=== PATIENT | female | born 1985 | race Caucasian/White ===

== ENCOUNTER 2019-02-03 17:52 | Emergency (ER) | payer OTHER ==
[~2019-02-03] VITALS: Ht 170.2 cm; Wt 59.0 kg
[~2019-02-03 17:52] MED LIST: ACEASPCAF PO; ACET325; ACET500 PO; ALBIPROI INH; ALBU90OI INH; AMOX500 PO; ASCO1ER; AZIT250 PO; AZIT500 PO; Amoxicillin875 MG PO; BCP; CODGUAEL PO; CYCL10 PO; FLUC150A PO; GUAI600T33 PO; HYDACE25S PR; HYDACE5 PO; HYDACE5325 PO; HYDGUAL120 PO; IBUP200; IBUP200 PO; IBUP400 PO; IBUP600 PO; Loperamide2 MG PO; MECL25 PO; MULVITMINE; NAPR500 PO; NAPR500EC PO; NAPR550 PO; NEOPOLHCSU RIGHTEAR; Norco 5-325 Ta1 EACH PO; ONDA4 PO; OXYACE5T; OXYACE5T PO; PAMPRIN; PENVK500 PO; PRED20 PO; PROM25 PO; PROM25S PR; Prilosec Otc20 MG; Pseudoephedrine30 MG PO; RANI150 PO; RXANTBENOT AU; RXCLIN PO; RXCODGUASY PO; RXHYD5325 PO; RXHYDACE PO; RXNAPNA550 PO; RXNEOPOLHC AD; RXTRAM50 PO; SULF10OPO OP; SULTRIDS PO; SUMA25 PO; TRAM50 PO; TUMS; Verotin-Gr Cap1 EACH PO; YASMINE BCP; Zithromax250 MG PO; Zofran Odt8 MG SL
[2019-02-03] MEDS ORDERED: Tamiflu75 MG PO (18:51)
== END 2019-02-03 18:54 | disposition home or self-care (01) ==
LOC: ER 17:52
DX: J11.1 Influenza due to unidentified influenza virus with other respiratory manifestations (principal); F17.200 Nicotine dependence, unspecified, uncomplicated
CPT/HCPCS: 99283

== ENCOUNTER 2019-05-07 19:32 | Emergency (ER) | payer OTHER ==
[~2019-05-07] VITALS: Ht 170.2 cm; Wt 56.7 kg
[~2019-05-07 19:32] MED LIST changes: +Tamiflu75 MG PO
== END 2019-05-07 20:29 | disposition home or self-care (01) ==
LOC: ER 19:32
DX: S61.214A Laceration without foreign body of right ring finger without damage to nail, initial encounter (principal); W26.8XXA Contact with other sharp object(s), not elsewhere classified, initial encounter; F17.200 Nicotine dependence, unspecified, uncomplicated
CPT/HCPCS: 12001; 90471; 90714; 99283-25

== ENCOUNTER 2020-06-03 13:56 | Emergency (ER) | payer OTHER ==
[~2020-06-03] VITALS: Ht 170.2 cm; Wt 49.9 kg
[2020-06-03] MEDS ORDERED: LEXAPRO5 MG (14:38)
[2020-06-03] MEDS ORDERED: Miralax17 GM PO (15:52)
[2020-06-03] MEDS ORDERED: RECTICARE30 GM TOP (15:52)
[2020-06-03] MEDS ORDERED: HYDR25SUP PR (15:52)
[2020-06-17] MEDS ORDERED: Pyridium100 MG PO (17:31)
== END 2020-06-03 16:20 | disposition home or self-care (01) ==
LOC: ER 13:56
DX: Z48.00 Encounter for change or removal of nonsurgical wound dressing (principal); K64.4 Residual hemorrhoidal skin tags; F17.210 Nicotine dependence, cigarettes, uncomplicated
CPT/HCPCS: 99282

== ENCOUNTER → 2020-06-18 | Outpatient (CLI) | payer OTHER ==
[~2020-06-18] MED LIST changes: +HYDR25SUP PR; +LEXAPRO5 MG; +Miralax17 GM PO; +Pyridium100 MG PO; +RECTICARE30 GM TOP
== END | disposition home or self-care (01) ==
LOC: LAB SHORT 17:00 → LAB 17:00
DX: N39.0 Urinary tract infection, site not specified (principal)
CPT/HCPCS: 87086

== ENCOUNTER 2021-03-12 16:49 | Emergency (ER) | payer OTHER ==
[~2021-03-12] VITALS: Ht 170.2 cm; Wt 49.9 kg
[~2021-03-12 16:49] MED LIST changes: +TRAZ50 PO
[2021-03-12 18:25] LABS: Source, Urine Clean Catch
[2021-03-12 18:28] LABS: Appearance, Urine Hazy (Clear); Bilirubin, Urine Neg (Neg); Blood, Urine 1+ (Neg); Color, Urine Yellow (P-Yellow); Glucose Qualitative, Urine Neg (Neg); Ketones, Urine 1+ (Neg); Leukocyte Esterase, Urine 1+ (Neg); Nitrite, Urine Pos (Neg); Protein, Urine Neg (Neg); Specific Gravity, Urine 1.015 (1.003-1.022); Urobilinogen, Urine NORM (Normal)
[2021-03-12] MEDS ORDERED: CYCL10 PO (18:44)
[2021-03-12] MEDS ORDERED: KETO10 PO (18:44)
[2021-03-12 18:48] LABS: Bacteria Many /hpf; Red Blood Cells, Urine 0-2 /hpf (0-2); Squamous Epithelial Cells Few /hpf (Few)
[2021-03-12] MEDS ORDERED: CEPHALEXIN500 M1 PO (18:57)
== END 2021-03-12 19:15 | disposition home or self-care (01) ==
LOC: ER 16:49
PROVIDERS: Physician Assistant
DX: S39.012A Strain of muscle, fascia and tendon of lower back, initial encounter (principal); N39.0 Urinary tract infection, site not specified; F17.210 Nicotine dependence, cigarettes, uncomplicated; X58.XXXA Exposure to other specified factors, initial encounter
CPT/HCPCS: 72220; 81001; 87077; 87086; 87186; 96372; 99283-25; A9270; J1885

== ENCOUNTER 2021-06-28 04:50 | Emergency (ER) | payer OTHER ==
[~2021-06-28] VITALS: Ht 170.2 cm; Wt 51.7 kg
[~2021-06-28 04:50] MED LIST changes: +CEPHALEXIN500 M1 PO; +KETO10 PO
[2021-06-28] MEDS ORDERED: METPRE4DP PO (05:42)
[2021-06-28] MEDS ORDERED: CYCL10 PO (05:42)
== END 2021-06-28 08:25 | disposition home or self-care (01) ==
LOC: ER 04:50
DX: M54.16 Radiculopathy, lumbar region (principal); F17.210 Nicotine dependence, cigarettes, uncomplicated
CPT/HCPCS: 99283; A9270; J7512

== ENCOUNTER 2021-08-02 20:27 | Emergency (ER) | payer OTHER ==
[~2021-08-02] VITALS: Ht 170.2 cm; Wt 51.7 kg
[~2021-08-02 20:27] MED LIST changes: +METPRE4DP PO
== END 2021-08-02 21:25 | disposition home or self-care (01) ==
LOC: ER 20:27
DX: H66.92 Otitis media, unspecified, left ear (principal); F17.210 Nicotine dependence, cigarettes, uncomplicated
CPT/HCPCS: 99283; A9270

== ENCOUNTER 2023-03-21 14:12 | Inpatient (IN) | payer OTHER ==
[~2023-03-21] VITALS: Ht 170.2 cm; Wt 66.3 kg
[2023-03-21] VITALS (28 sets, daily range): BP systolic 99–179; BP diastolic 58–88
[2023-03-21 15:07] LABS: BASOPHILS ABSOLUTE AUTO 0.06 K/mm3 (0.00-0.23); BASOPHILS PERCENT AUTO 0 % (0-2); EOSINOPHILS ABSOLUTE AUTO 0.09 K/mm3 (0.00-0.68); EOSINOPHILS PERCENT AUTO 0 % (0-6); Hematocrit 35.9 % (33.0-51.0); Hemoglobin 11.9 g/dL (11.5-16.0); IMMATURE GRAN PERCENT AUTO 1 % (0-1); LYMPHOCYTES ABSOLUTE AUTO 2.14 K/mm3 (0.84-5.20); LYMPHOCYTES PERCENT AUTO 11 % (21-46); MONOCYTES PERCENT AUTO 6 % (4-13); Mean Corpuscular HGB 28.8 pg (26.0-34.0); Mean Corpuscular HGB Conc 33.1 g/dL (31.5-36.5); Mean Corpuscular Volume 87 fL (80-100); Mean Platelet Volume 9.5 fL (9.1-12.4); NEUTROPHILS ABSOLUTE AUTO 16.55 K/mm3 (1.96-9.15); NEUTROPHILS PERCENT AUTO 83 % (41-73); Platelet Count 354 K/mm3 (150-400); RDW Coefficient Variation 13.5 % (11.7-14.2); RDW Standard Deviation 42.7 fL (35.1-46.3); Red Blood Cell Count 4.13 M/mm3 (3.80-5.20); White Blood Cell Count 20.04 K/mm3 (4.00-11.30)
[2023-03-21] MEDS ORDERED: Triamcinolone A15 G3 TOP (15:32)
[2023-03-21] MEDS ORDERED: Methadone S5 MG/5 ML (15:34)
[2023-03-21] MEDS ORDERED: PRENATAL TABLE1 EAC2 PO (15:34)
[2023-03-21 17:21] LABS: PCO2 Cord - Arterial 63.1 mmHg (40-50); pH Cord - Arterial 7.26 (7.28-7.35)
[2023-03-21 17:24] LABS: PCO2 Cord - Venous 50.1 mmHg (40-50); PO2 Cord - Venous 22.4 mmHg (28-32); pH Umbilical Cord - Venous 7.34 (7.26-7.35)
--- NOTE | 2023-03-21 17:39 | NUR ---
03/21/23 1739 Erin Rhodes VIABLE FEMALE BORN VIA C/SECTION AT 1701. CORD SEGMENT GIVEN TO RT DIAZ FOR CORD GASSES. CORD BLOOD GIVEN TO VIRGIL ALFONSO FOR BLOOD TYPE. WT 6 LBS 13 OZ.
--- NOTE | 2023-03-21 18:43 | NUR ---
LATE ENTRY PT ADMITTED TO [facility] FOR [facility]CS, PT HAS HX OF SUBSTANCE ABUSE AND WILLING ADMITTS [facility] PRIOR TO ADMIT.
--- NOTE | 2023-03-21 22:00 | NUR ---
1950 Patient requesting to go outside to smoke. patient's BP was 161/ 83. Repeat 155/72. At 2011 BP went back up to 179/80. Elsy Huggins notified. Nicotine patch ordered. Patient agreed to use patch instead of going outside. Patient also complaing of "severe" pain and has been medicated for pain. Will continue to monitor BP. 2019 Reported continued elevated BPs to Elsy Huggins who consulted withDr. Raman. Will treat pain and monitor BP. [address] Raman to report continued elevated BPs. Nifedipine ordered and administered to patient. 0330 BPs have stayed in normal range for the remainder of the shift.
[2023-03-21 23:12] LABS: U Amphetamine Screen DETECTED; U Methamphetamine Screen DETECTED
[2023-03-21 23:13] LABS: U Barbituate Screen Not Detected; U Benzodiazapine Screen Not Detected; U Buprenorphine Screen Not Detected; U Cannabinoids Screen Not Detected; U Cocaine Screen Not Detected; U Methadone Screen DETECTED; U Opiates Screen Not Detected; U Oxycodone Screen Not Detected; U Phencyclidine Screen Not Detected; U Propoxyphene Screen Not Detected
[2023-03-22] VITALS (7 sets, daily range): BP systolic 120–135; BP diastolic 62–69
--- NOTE | 2023-03-22 03:33 | NUR ---
0250 Patient states she wants to go outside to smoke. Patient informed that it is recommended by Dr. Raman to not go outside until tomorrow. Patient educated on risks. Patient states she still wants to go outside and will sign AMA form. AMA form signed, IV wrapped with coban and tamper resistant tape. Significant other took patient outside in wheelchair.
[2023-03-22 09:58] LABS: BASOPHILS ABSOLUTE AUTO 0.06 K/mm3 (0.00-0.23); BASOPHILS PERCENT AUTO 0 % (0-2); EOSINOPHILS ABSOLUTE AUTO 0.01 K/mm3 (0.00-0.68); EOSINOPHILS PERCENT AUTO 0 % (0-6); Hematocrit 31.2 % (33.0-51.0); Hemoglobin 10.5 g/dL (11.5-16.0); IMMATURE GRAN ABSOLUTE AUTO 0.22 K/mm3 (0.00-0.10); IMMATURE GRAN PERCENT AUTO 1 % (0-1); LYMPHOCYTES ABSOLUTE AUTO 2.55 K/mm3 (0.84-5.20); LYMPHOCYTES PERCENT AUTO 9 % (21-46); MONOCYTES ABSOLUTE AUTO 1.37 K/mm3 (0.16-1.47); MONOCYTES PERCENT AUTO 5 % (4-13); Mean Corpuscular HGB Conc 33.7 g/dL (31.5-36.5); Mean Corpuscular Volume 86 fL (80-100); Mean Platelet Volume 9.7 fL (9.1-12.4); NEUTROPHILS ABSOLUTE AUTO 23.94 K/mm3 (1.96-9.15); NEUTROPHILS PERCENT AUTO 85 % (41-73); Platelet Count 337 K/mm3 (150-400); RDW Coefficient Variation 13.4 % (11.7-14.2); RDW Standard Deviation 41.6 fL (35.1-46.3); Red Blood Cell Count 3.62 M/mm3 (3.80-5.20); White Blood Cell Count 28.15 K/mm3 (4.00-11.30)
[2023-03-22 10:41] LABS: Albumin/Globulin Ratio 0.5 (0.8-1.8); Bilirubin, Total 0.2 mg/dL (0.1-1.0); Bun/Creatinine Ratio 10.1 (12.0-20.0); Calcium, Blood 8.3 mg/dL (8.5-10.1); Creatinine, Blood 0.69 mg/dL (0.40-1.00); Globulin, Blood 3.1 g/dL (2.2-4.0); Potassium, Blood 3.9 mmol/L (3.5-5.5); Total Protein, Blood 4.8 g/dL (6.4-8.2)
[2023-03-22 10:55] LABS: Albumin, Blood 1.7 g/dL (3.4-5.0)
--- NOTE | 2023-03-22 23:15 | NUR ---
Pt out of room.Pt support stated they were going outside to smoke,would be right back.
[2023-03-23] VITALS (7 sets, daily range): BP systolic 135–165; BP diastolic 70–81
--- NOTE | 2023-03-23 05:12 | NUR ---
2230 Pt returned to room.
[2023-03-23 06:07] LABS: Hematocrit 32.5 % (33.0-51.0); Hemoglobin 10.6 g/dL (11.5-16.0); Mean Corpuscular HGB 28.6 pg (26.0-34.0); Mean Corpuscular HGB Conc 32.6 g/dL (31.5-36.5); Mean Corpuscular Volume 88 fL (80-100); Mean Platelet Volume 9.4 fL (9.1-12.4); Platelet Count 355 K/mm3 (150-400); RDW Coefficient Variation 13.8 % (11.7-14.2); RDW Standard Deviation 44.2 fL (35.1-46.3); Red Blood Cell Count 3.71 M/mm3 (3.80-5.20); White Blood Cell Count 18.09 K/mm3 (4.00-11.30)
--- NOTE | 2023-03-23 06:50 | NUR ---
0645 -Pt went outside with her support person.
--- NOTE | 2023-03-23 15:14 | NUR ---
BP RETAKEN WITH PT LEGS UNCROSSED
[2023-03-24] VITALS (11 sets, daily range): BP systolic 118–167; BP diastolic 66–94
--- NOTE | 2023-03-24 11:11 | NUR ---
agree with above assessment
--- NOTE | 2023-03-24 14:45 | NUR ---
CPS AT BEDSIDE TO PT.
--- NOTE | 2023-03-24 15:45 | NUR ---
pt and so back to room with cps. pt due for bp check, but lots of people in room making safety plans for when baby able to go home
--- NOTE | 2023-03-24 18:28 | NUR ---
pt should have more blood pressures done, but has not been in the room much since the start of cps visit, they leave [facility] for an hour or more. leaving baby at desk for rn to care for
--- NOTE | 2023-03-24 18:36 | NUR ---
cesario castano notified of bp's, aware pt is not in room much and cant repeat bp if not in room, pt keeps going out side and is there for greater than an hour. cesario castano requests that if pt comes back to please see if can get a few bp and call if they are high.
[2023-03-25] VITALS (7 sets, daily range): BP systolic 137–160; BP diastolic 72–82
[2023-03-25] MEDS ORDERED: LABE200 PO (16:42)
[2023-03-25] MEDS ORDERED: Percocet 5-3251 EACH PO (16:43)
[2023-03-25] MEDS ORDERED: IBUP800 PO (16:43)
--- NOTE | 2023-03-25 20:41 | NUR ---
Pt is out of room. Baby is with nurse.
--- NOTE | 2023-03-29 15:04 | NUR ---
PPFU - PT NO SHOWED TO TODAY'S APPOINTMENT.
== END 2023-03-25 22:05 | disposition home or self-care (01) | DRG 784 ==
LOC: BC 14:12 → OBS 14:12 → BC 14:48
PROVIDERS: Advanced Practice Midwife; ADMIT Obstetrics & Gynecology
PROC: 0UT70ZZ Resection of Bilateral Fallopian Tubes, Open Approach (ICD-10-PCS; 2023-03-21)
PROC: 10D00Z1 Extraction of Products of Conception, Low, Open Approach (ICD-10-PCS; principal; 2023-03-21 17:30)
DX: O34.211 Maternal care for low transverse scar from previous cesarean delivery (principal); O99.324 Drug use complicating childbirth; O99.62 Diseases of the digestive system complicating childbirth; K21.9 Gastro-esophageal reflux disease without esophagitis; O16.5 Unspecified maternal hypertension, complicating the puerperium; F11.10 Opioid abuse, uncomplicated; F15.10 Other stimulant abuse, uncomplicated; O99.334 Smoking (tobacco) complicating childbirth; F17.210 Nicotine dependence, cigarettes, uncomplicated; Z67.10 Type A blood, Rh positive; Z30.2 Encounter for sterilization; Z90.49 Acquired absence of other specified parts of digestive tract; Z98.890 Other specified postprocedural states; Z37.0 Single live birth; Z3A.39 39 weeks gestation of pregnancy; Z91.011 Allergy to milk products; Z79.899 Other long term (current) drug therapy
CPT/HCPCS: 36415; 59025; 80053; 82803; 85025; 85027; 86850; 86900; 86901; 86923; 88302; A9270; J0171; J0690; J1100; J1885; J2001; J2210; J2370; J2405; J2590; J2765; J3010; J7120

== ENCOUNTER 2023-04-01 20:29 | Emergency (ER) | payer OTHER ==
[~2023-04-01] VITALS: Ht 170.2 cm; Wt 49.9 kg
[~2023-04-01 20:29] MED LIST changes: +IBUP800 PO; +LABE200 PO; +Methadone S5 MG/5 ML; +PRENATAL TABLE1 EAC2 PO; +Percocet 5-3251 EACH PO; +Triamcinolone A15 G3 TOP
[2023-04-01 21:11] VITALS: BP 117/78
== END 2023-04-01 23:36 | disposition home or self-care (01) ==
LOC: ER 20:29
DX: O90.0 Disruption of cesarean delivery wound (principal); F17.210 Nicotine dependence, cigarettes, uncomplicated; Z79.899 Other long term (current) drug therapy
CPT/HCPCS: 99283